=== PATIENT | male | born 1985 | race Caucasian/White ===

== ENCOUNTER 2020-04-21 07:05 | Emergency (ER) | payer OTHER ==
[~2020-04-21] VITALS: Ht 177.8 cm; Wt 103.4 kg
[2020-04-21 07:17] VITALS: Ht 177.8 cm; Wt 103.4 kg
[2020-04-21 10:52] VITALS: BP 110/71
== END 2020-04-21 10:52 | disposition home or self-care (01) ==
LOC: ED 07:05
DX: S39.012A Strain of muscle, fascia and tendon of lower back, initial encounter (principal); X50.0XXA Overexertion from strenuous movement or load, initial encounter; Y93.89 Activity, other specified; Y92.89 Other specified places as the place of occurrence of the external cause; Y99.8 Other external cause status
CPT/HCPCS: J1885; J3010